=== PATIENT | female | born 1995 | race Caucasian/White ===

== ENCOUNTER 2018-03-25 01:03 | Emergency (ER) | payer OTHER ==
[~2018-03-25] VITALS: Ht 154.9 cm; Wt 52.2 kg
[2018-03-25] MEDS ORDERED: VISTARIL25 MG PO (02:18)
== END 2018-03-25 02:28 | disposition home or self-care (01) ==
LOC: ER 01:03
DX: R00.2 Palpitations (principal); F06.4 Anxiety disorder due to known physiological condition

== ENCOUNTER 2018-07-01 10:20 | Emergency (ER) | payer OTHER ==
[~2018-07-01] VITALS: Ht 154.9 cm; Wt 52.2 kg
[~2018-07-01 10:20] MED LIST: VISTARIL25 MG PO
== END 2018-07-01 16:14 | disposition home or self-care (01) ==
LOC: ER 10:20
DX: K52.9 Noninfective gastroenteritis and colitis, unspecified (principal)

== ENCOUNTER 2019-01-16 06:56 | Emergency (ER) | payer OTHER ==
[~2019-01-16] VITALS: Ht 154.9 cm; Wt 52.2 kg
== END 2019-01-16 11:05 | disposition home or self-care (01) ==
LOC: ER 06:56
DX: N83.291 Other ovarian cyst, right side (principal)

== ENCOUNTER 2019-05-21 02:27 | Emergency (ER) | payer OTHER ==
[~2019-05-21] VITALS: Ht 154.9 cm; Wt 53.1 kg
[2019-05-21] MEDS ORDERED: VISTARIL50 MG PO (03:39)
== END 2019-05-21 05:52 | disposition home or self-care (01) ==
LOC: ER 02:27
DX: F06.4 Anxiety disorder due to known physiological condition (principal)

== ENCOUNTER 2021-11-01 23:43 | Emergency (ER) | payer OTHER ==
[~2021-11-01] VITALS: Ht 154.9 cm; Wt 59.0 kg
[~2021-11-01 23:43] MED LIST changes: +VISTARIL50 MG PO
[2021-11-01] MEDS ORDERED: AUGMENTIN600 MG/5 M (23:50)
[2021-11-02] MEDS ORDERED: AMOX-CLAV 875-1 EACH PO (02:06)
[2021-11-02] MEDS ORDERED: INTESTINEX680 M1 PO (02:06)
[2021-11-02] MEDS ORDERED: DICLOFENAC POTA50 MG PO (02:06)
== END 2021-11-02 02:21 | disposition home or self-care (01) ==
LOC: ER 23:43
DX: H66.91 Otitis media, unspecified, right ear (principal)

== ENCOUNTER 2022-05-22 16:19 | Emergency (ER) | payer OTHER ==
[~2022-05-22] VITALS: Ht 154.9 cm; Wt 59.0 kg
[~2022-05-22 16:19] MED LIST changes: +AMOX-CLAV 875-1 EACH PO; +AUGMENTIN600 MG/5 M; +DICLOFENAC POTA50 MG PO; +INTESTINEX680 M1 PO
== END 2022-05-22 19:37 | disposition home or self-care (01) ==
LOC: ER 16:19
DX: R07.89 Other chest pain (principal)

== ENCOUNTER 2022-10-04 19:07 | Emergency (ER) | payer OTHER ==
[~2022-10-04] VITALS: Ht 154.9 cm; Wt 56.7 kg
== END 2022-10-04 23:19 | disposition home or self-care (01) ==
LOC: ER 19:07
DX: R10.2 Pelvic and perineal pain (principal)